=== PATIENT | male | born 1975 | race Caucasian/White ===

== ENCOUNTER → 2024-12-16 | Outpatient (CLI) | payer MEDICAID ==
--- NOTE | 2024-12-16 17:41 | MR ---
EXAMINATION TYPE: MR brain wo con DATE OF EXAM: 12/16/2024 6:26 AM COMPARISON: None. CLINICAL INDICATION: Male, 49 years old with history of G43.909 MIGRAINE, UNSP, NOT INTRAC, Migraines . TECHNIQUE: Multiplanar, multiecho imaging on a 3.0 Priscilla magnet is performed through the brain. Stud y is performed within 24 hours of arrival to the hospital.Multiplanar, multiecho imaging on a 3.0 Sulma la magnet is performed through the brain. IV Contrast: mL (None, if empty) FINDINGS: The craniovertebral junction is normal. The pituitary is normal. Diffusion-weighted imaging is performed. No abnormal hyperintensity is present to suggest an acute i ntracranial infarct or acute ischemic change. There is a punctate hyperintensity within the subcortical white matter left parietal lobe. This may b e artifact from a vascular structure in the subcutaneous tissue. Solitary white matter change which c ould be associated with migraine headaches is felt to be less likely. Ventricles and sulci are appropriate for the patient age. Mucosal thickening is in the bilateral maxillary sinuses and ethmoid air cells. Some mucosal thickeni ng is within the frontal sinuses. Minimal mucosal thickening sphenoid sinus. Mastoid air cells are cl ear. IMPRESSION: 1. No suspicious acute intracranial process. 2. Clinical consideration for pansinusitis [facility], Workstation: [facility], 12/16/2024 5:38 PM
== END | disposition home or self-care (01) ==
LOC: RADMRIMAIN 05:51
PROVIDERS: ATTEND Family Medicine
DX: G43.909 Migraine, unspecified, not intractable, without status migrainosus (principal); J32.4 Chronic pansinusitis
CPT/HCPCS: 70551

== ENCOUNTER 2025-05-23 18:56 | Inpatient (IN) | payer MEDICAID ==
--- NOTE | 2025-05-23 20:10 | ED ---
General Adult HPI - General Chief complaint: Psychiatric Symptoms Stated complaint: Suicidal,body pain Time Seen by Provider: 05/23/25 19:41 Source: patient Mode of arrival: ambulatory Limitations: no limitations - History of Present Illness Initial comments: Dictation was produced using [employer] dictation software. please excuse any grammatical, word or spelling errors. Chief Complaint: 49-year-old male with suicidal ideation History of Present Illness: Patient is a 49-year-old male recently diagnosed with myasthenia gravis. Patient states that he is depressed with how his life is unfolding. States that he feels like ending at all. Patient states that he wants to shave his. Take pills and walk into a pond. Denies any medical complaints. Patient allegedly has history myasthenia gravis that he states he cannot afford to fully manage due to the financial burden. The ROS documented in this emergency department record has been reviewed and confirmed by me. Those systems with pertinent positive or negative responses have been documented in the HPI. All other systems are other negative and/or noncontributory. - Related Data Home Medications Medication Instructions Recorded Confirmed LORazepam [Ativan] 1 mg PO BID PRN 05/23/25 05/23/25 Pyridostigmine [Mestinon] 60 mg PO BID 05/23/25 05/23/25 Allergies Allergy/AdvReac Type Severity Reaction Status Date / Time Penicillins Allergy Anaphylaxis Verified 05/23/25 19:49 Review of Systems ROS Statement: Those systems with pertinent positive or pertinent negative responses have been documented in the HPI. ROS Other: All systems not noted in ROS Statement are negative. Past Medical History Additional Past Medical History / Comment(s): miastavian gravis History of Any Multi-Drug Resistant Organisms: None Reported Past Surgical History: No Surgical Hx Reported Past Psychological History: No Psychological Hx Reported Smoking Status: Vaper Past Alcohol Use History: Occasional Past Drug Use History: None Reported General Exam - General Exam Comments Initial Comments: General: Well-appearing, nontoxic, no acute distress. Head: Normocephalic, atraumatic Eyes: PERRLA, EOMI ENT: Airway patent Chest: Nonlabored breathing Skin: No visual rash, normal skin tone Neuro: Alert and oriented 3 Musculoskeletal: No gross abnormalities Limitations: no limitations Course Vital Signs 05/23/25 19:23 Temperature 98.3 F Pulse Rate 73 Respiratory 18 Rate Blood Pressure 145/89 O2 Sat by Pulse 98 Oximetry Medical Decision Making - Medical Decision Making Was pt. sent in by a medical professional or institution (, PA, SUPPLY TEACHER, urgent care, hospital, or skilled nursing...) When possible be specific @ -No Did you speak to anyone other than the patient for history (EMS, parent, family, police, friend...)? What history was obtained from this source @ -No Did you review nursing and triage notes (agree or disagree)? Why? @ -I reviewed and agree with nursing and triage notes Were old charts reviewed (outside hosp., previous admission, EMS record, old EKG, old radiological studies, urgent care reports/EKG's, skilled nursing records)? Report findings @ -No old charts were reviewed Differential Diagnosis (chest pain, altered mental status, abdominal pain women, abdominal pain men, vaginal bleeding, musculoskeletal, weakness, fever, dyspnea, syncope, headache, dizziness, GI bleed, back pain, seizure, CVA, palpatations, mental health)? @ -Differential Mental Health: Depression, anxiety, bipolar, psychosis, schizophrenia, borderline personality, situational depression, adjustment disorder, behavioral disorder, brain tumor, malingering, substance abuse, encephalopathy, medication reaction, dementia, hypothyroidism, degenerative neurologic disorder, lupus.... This is not meant to be all-inclusive list EKG interpreted by me (3pts min.). @ -None done X-rays interpreted by me (1pt min.). @ -None done CT interpreted by me (1pt min.). @ -None done U/S interpreted by me (1pt. min.). @ -None done What testing was considered but not performed or refused? (CT, X-rays, U/S, labs)? Why? @ -None What meds were considered but not given or refused? Why? @ -None Was smoking cessation discussed for >3mins.? @ -No Were there social determinants of health that impacted care today? How? (Homelessness, low income, unemployed, alcoholism, drug addiction, transportation, low edu. Level, literacy, decrease access to med. care, fpc, rehab)? @ -No Was there de-escalation of care discussed even if they declined (Discuss DNR or withdrawal of care, Hospice)? DNR status @ -No What co-morbidities impacted this encounter? (DM, HTN, Smoking, COPD, CAD, Cancer, CVA, ARF, Chemo, Hep., AIDS, mental health diagnosis, sleep apnea, morbid obesity)? @ -None Was patient admitted / discharged? Hospital course, mention meds given and route, prescriptions, significant lab abnormalities, going to OR and other pertinent info. @ -41-year-old male with suicidal ideation. Vital signs stable. Has history of metastatic gravis that he states is poorly controlled. Physical examination benign. Patient well-appearing at the bedside. Medically cleared for EPS evaluation. Eval by EPS will be admitted to inpatient psych Diagnosis/symptom? @ -Suicidal ideation Acute, or Chronic, or Acute on Chronic? @ -Default Uncomplicated (without systemic symptoms) or Complicated (systemic symptoms)? @ -Default Side effects of treatment? @ -None Exacerbation, Progression, or Severe Exacerbation] @ -No Poses a threat to life or bodily function? @ -yes - Lab Data Lab Results 05/23/25 05/23/25 Range/Units 20:24 20:24 Urine Opiates Screen Not Detected (NotDetected) Ur Oxycodone Screen Not Detected (NotDetected) Urine Methadone Screen Not Detected (NotDetected) Ur Barbiturates Screen Not Detected (NotDetected) U Tricyclic Antidepress Not Detected (NotDetected) Ur Phencyclidine Scrn Not Detected (NotDetected) Ur Amphetamines Screen Not Detected (NotDetected) U Methamphetamines Scrn Not Detected (NotDetected) U Benzodiazepines Scrn Not Detected (NotDetected) Urine Cocaine Screen Not Detected (NotDetected) U Marijuana (THC) Screen Detected H (NotDetected) Influenza Type A (PCR) Not Detected (Not Detectd) Influenza Type B (PCR) Not Detected (Not Detectd) RSV (PCR) Not Detected (Not Detectd) SARS-CoV-2 (PCR) Not Detected (Not Detectd) Disposition Clinical Impression: Suicidal ideation Disposition: TRANSFER TO PSYCH HOSP/UNIT Condition: Fair Referrals: Carter Rodrigez MD [Primary Care Provider] - 1-2 days Time of Disposition: 21:46
[2025-05-23 20:54] LABS: Barbiturate Screen,Urine Not Detected (NotDetected); Benzodiazepines Screen,Urine Not Detected (NotDetected); Opiate Screen,Urine Not Detected (NotDetected); Oxycodone Screen, Urine Not Detected (NotDetected); Phencyclidine Screen,Urine Not Detected (NotDetected); Tricyclic Antidepressant,Urine Not Detected (NotDetected); Urn Cannabinoid Scrn Detected (NotDetected)
[2025-05-23 21:13] LABS: RSV Not Detected (Not Detectd)
[2025-05-23] MEDS ORDERED: HALOPERIDOL LACTATE 5 MG/ML 1 ML VIAL IM PRN (22:25)
[2025-05-23] MEDS ORDERED: LORazepam 1 MG/0.5 ML VIAL IM PRN (22:25)
[2025-05-23] MEDS ORDERED: ACETAMINOPHEN TAB 325 MG TAB PO PRN (22:25)
[2025-05-23] MEDS ORDERED: LORazepam 1 MG TAB PO PRN (22:25)
[2025-05-23] MEDS ORDERED: MAG HYDROX/AL HYDROX/SIMETH 355 ML BOTTLE PO PRN (22:25)
[2025-05-23] MEDS ORDERED: IBUPROFEN 600 MG TAB PO PRN (22:25)
[2025-05-24] MEDS: NICOTINE 14MG/24HR PATCH TRANSDERM SCH (08:15)
[2025-05-24] MEDS: PYRIDOSTIGMINE 60 MG TAB PO SCH (08:15)
[2025-05-24 11:07] LABS: Basophils # (A) 0.04 10*3/uL (0.00-0.10); Basophils % (A) 0.6 %; Eosinophils # (A) 0.22 10*3/uL (0.04-0.35); Eosinophils % (A) 3.3 %; HCT 45.5 % (39.6-50.0); HGB 15.3 g/dL (13.0-17.0); Lymphocytes # (A) 1.42 10*3/uL (0.90-5.00); Lymphocytes % (A) 21.2 %; MCH 32.6 pg (27.0-32.0); MCHC 33.6 g/dL (32.0-37.0); MCV 97.0 fL (80.0-97.0); Monocytes # (A) 0.57 10*3/uL (0.20-1.00); Monocytes % (A) 8.5 %; Neutrophils # (A) 4.44 10*3/uL (1.80-7.70); Neutrophils % (A) 66.1 %; Platelet Count 228 10*3/uL (140-440); RBC 4.69 10*6/uL (4.40-5.60); RDW 12.7 % (11.5-14.5); WBC 6.71 10*3/uL (4.50-10.00)
[2025-05-24 11:13] LABS: ALT 17 U/L (4-49); AST 25 U/L (17-59); African American GFR (CKD) >90 (>60 ml/min/1.73 sqM); Albumin 4.4 g/dL (3.5-5.0); Alkaline Phosphatase 43 U/L (38-126); Anion Gap 12 mmol/L; Blood Urea Nitrogen 12 mg/dL (9-20); Calcium 9.6 mg/dL (8.4-10.2); Carbon Dioxide 24 mmol/L (22-30); Chloride 103 mmol/L (98-107); Glucose 81 mg/dL (74-99); Non-African American GFR(CKD) >90 (>60 ml/min/1.73 sqM); Potassium 4.5 mmol/L (3.5-5.1); Sodium 139 mmol/L (137-145); Total Protein 7.5 g/dL (6.3-8.2)
--- NOTE | 2025-05-24 12:53 | P.HP ---
Psychiatric H&P - . H&P Date: 05/24/25 History & Physical: Allergies Allergy/AdvReac Type Severity Reaction Status Date / Time banana Allergy Anaphylaxis Verified 05/23/25 22:29 Penicillins Allergy Anaphylaxis Verified 05/23/25 19:49 Vital Signs Temp 97.2 F L 05/24/25 09:00 Pulse 87 05/24/25 09:00 Resp 18 05/24/25 09:00 BP 121/85 05/24/25 09:00 Pulse Ox 94 L 05/24/25 09:00 FiO2 Intake & Output 05/23/25 05/24/25 05/24/25 18:59 06:59 18:59 Weight 132.8 kg Laboratory Last Values WBC 6.71 10*3/uL (4.50-10.00) 05/24/25 09:53 RBC 4.69 10*6/uL (4.40-5.60) 05/24/25 09:53 Hgb 15.3 g/dL (13.0-17.0) 05/24/25 09:53 Hct 45.5 % (39.6-50.0) 05/24/25 09:53 MCV 97.0 fL (80.0-97.0) 05/24/25 09:53 MCH 32.6 pg (27.0-32.0) H 05/24/25 09:53 MCHC 33.6 g/dL (32.0-37.0) 05/24/25 09:53 Plt Count 228 10*3/uL (140-440) 05/24/25 09:53 MPV 10.9 fL (9.5-12.2) 05/24/25 09:53 Immature Gran % (Auto) 0.3 % 05/24/25 09:53 Neutrophils % 66.1 % 05/24/25 09:53 Lymphocytes % 21.2 % 05/24/25 09:53 Monocytes % 8.5 % 05/24/25 09:53 Eosinophils % 3.3 % 05/24/25 09:53 Basophils % 0.6 % 05/24/25 09:53 Immature Gran # 0.02 10*3/uL (0.00-0.04) 05/24/25 09:53 Neutrophils # 4.44 10*3/uL (1.80-7.70) 05/24/25 09:53 Lymphocytes # 1.42 10*3/uL (0.90-5.00) 05/24/25 09:53 Monocytes # 0.57 10*3/uL (0.20-1.00) 05/24/25 09:53 Eosinophils # 0.22 10*3/uL (0.04-0.35) 05/24/25 09:53 Basophils # 0.04 10*3/uL (0.00-0.10) 05/24/25 09:53 Sodium 139 mmol/L (137-145) 05/24/25 09:53 Potassium 4.5 mmol/L (3.5-5.1) 05/24/25 09:53 Chloride 103 mmol/L (98-107) 05/24/25 09:53 Carbon Dioxide 24 mmol/L (22-30) 05/24/25 09:53 Anion Gap 12 mmol/L 05/24/25 09:53 BUN 12 mg/dL (9-20) 05/24/25 09:53 Creatinine 0.96 mg/dL (0.66-1.25) 05/24/25 09:53 Est GFR (CKD-EPI)AfAm >90 (>60 ml/min/1.73 sqM) 05/24/25 09:53 Est GFR (CKD-EPI)NonAf >90 (>60 ml/min/1.73 sqM) 05/24/25 09:53 Glucose 81 mg/dL (74-99) 05/24/25 09:53 Calcium 9.6 mg/dL (8.4-10.2) 05/24/25 09:53 Total Bilirubin 0.7 mg/dL (0.2-1.3) 05/24/25 09:53 AST 25 U/L (17-59) 05/24/25 09:53 ALT 17 U/L (4-49) 05/24/25 09:53 Alkaline Phosphatase 43 U/L (38-126) 05/24/25 09:53 Total Protein 7.5 g/dL (6.3-8.2) 05/24/25 09:53 Albumin 4.4 g/dL (3.5-5.0) 05/24/25 09:53 TSH 3.040 mIU/L (0.465-4.680) 05/24/25 09:53 Urine Opiates Screen Not Detected (NotDetected) 05/23/25 20:24 Ur Oxycodone Screen Not Detected (NotDetected) 05/23/25 20:24 Urine Methadone Screen Not Detected (NotDetected) 05/23/25 20:24 Ur Barbiturates Screen Not Detected (NotDetected) 05/23/25 20:24 U Tricyclic Antidepress Not Detected (NotDetected) 05/23/25 20:24 Ur Phencyclidine Scrn Not Detected (NotDetected) 05/23/25 20:24 Ur Amphetamines Screen Not Detected (NotDetected) 05/23/25 20:24 U Methamphetamines Scrn Not Detected (NotDetected) 05/23/25 20:24 U Benzodiazepines Scrn Not Detected (NotDetected) 05/23/25 20:24 Urine Cocaine Screen Not Detected (NotDetected) 05/23/25 20:24 U Marijuana (THC) Screen Detected (NotDetected) H 05/23/25 20:24 Influenza Type A (PCR) Not Detected (Not Detectd) 05/23/25 20:24 Influenza Type B (PCR) Not Detected (Not Detectd) 05/23/25 20:24 RSV (PCR) Not Detected (Not Detectd) 05/23/25 20:24 SARS-CoV-2 (PCR) Not Detected (Not Detectd) 05/23/25 20:24 05/24/25 12:45 IDENTIFYING DATA: Patient is a 49-year-old male, employed and homeless CHIEF COMPLAINT: SI with a plan HPI: Patient presented to the hospital with depression, suicidal ideations. Per EPS, "Patient was escorted to ER by police but was not petitioned. Pt states he had called his primary care dr office stating he was fighting with himself to live. Pt states he was recently diagnosed with Myasthenia gravis in Sep 2024. Since then pt has had an increase in life stressors, recently pt and filiana broke up, pt lost job, lost car d/t inability to pay for it and is staying across the street from the ex- fiance's house with the ex-fiance's friend house who have small children. Pt reports struggling with depression for years but has not been inpatient psych previously or ever established outpatient MH treatment. [place] Patient reports past history of suicide attempts: cutting his wrist approx 20 yrs ago, walking into pond in below freezing weather sometime after Sep 2024 d/t diagnosis. Pt states he feels himself getting physicially weaker d/t the MG diagnosis but has no will to live "I just keep bottling everything up, it would be easier to be , I have nothing to live for". Pt rates depression "10/10" and admits to not being able to keep self safe. During assessment pt appears to have flat affect, guarded and vague initially but at end of assessment pt was tearful and forthcoming. Pt denies HI, admits to always seeing shadows and hearing people call his name when noone is around. Pt reports poor sleep, "I lay there and my mind keeps racing, I can't shut it off", poor appetite and poor hygiene". Patient seen and evaluated on the unit and was agreeable with speaking to advertising copywriter in office. He states things have been on a downward spiral ever since being diagnosed with myasthenia gravis in September. He states losing both his fiance and his job due to his health and expressed no desire to live. Patient reports history of unstable relationships and employment. Patient denies homicidal ideations intent or plan, but does report current suicidal ideation at this time. He reports his plan prior to going to the ED was to OD on my Lorazepam which he was prescribed to take prior to an MRI recently. Patient contracts to safety on the unit. At this time patient denies any auditory or visual hallucinations, but reports a history of seeing shadows and hearing people call my name. Patient denies any flight of ideas racing thoughts and increased in goal directed behavior. Patient reports multiple physical complaints due to his medical condition such as diplopia, weakness, and a chronic cough. Pt currently rates his depression 10/10, anxiety 8/10 due to racing thoughts. Patient has experienced low mood, poor sleep, anhedonia, feelings of worthlessness, poor energy, poor concentration, poor appetite, recent weight loss, and psychomotor slowing for many months. Patient reports feeling increased anxiety when in social situations and feeling like people are always looking at me and judging me. Patient denies symptoms of haroon. Patient admits to using marijuana daily. He reports consuming 1 pint of alcohol and 2-3 hard seltzers 2-3 times per week. Patient denies any other substance use. Patient voices concerns over current living situation as he states, its a terrible household. I cant go back there. PAST PSYCHIATRIC HISTORY: Patient has a history of depression. Patient denies being on any psychiatric medications. He has tried Prozac before in the past. Patient denies any previous psychiatric hospitalizations. Patient denies any psychiatric outpatient follow-up. Patient reports 2 previous suicide attempts, most recent being [place] 2022 [place] PMH: as per ER note ALLERGIES: as per EMR SUBSTANCE USE HISTORY: As per HPI FAMILY PSYCHIATRIC/SUBSTANCE USE HISTORY: Patient reports mental health concerns with his sister and possibly father however no actual diagnosis. He does report losing a niece and nephew to suicide SOCIAL HISTORY: [place]. 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 He reports having 2 grown children, receiving a GED, and denies any legal trouble. MENTAL STATUS EXAM: General Appearance: Patient appears to be stated age is alert, directable, and attempts to cooperate. Patient appears to have poor hygiene and grooming. He has a long goatee Behavior: Patient is seated without any agitated behavior. Speech: Patient's speech is fluent and nonpressured. Mood/Affect: Patient reports their mood is depressed, affect is congruent and constricted. Suicidality/Homicidality: Patient denies having any homicidal ideation intent or plan. He reports suicidal ideation with a plan Perceptions: Patient denies any visual hallucinations and denies any auditory hallucinations Though content/process: There is no evidence of any delusional thought content and thought process is linear and logical. Memory and concentration: AOX3, grossly intact for the purposes of this session. Can spell "WORLD" backwards Judgment and insight: Poor STRENGTHS/WEAKNESSES: strength is that patient is resilient. Weakness is that patient has poor judgment, recent diagnosis of MG and is impulsive INTELLECT: Average IMPRESSIONS: Major depressive disorder, recurrent, moderate Social anxiety disorder Cannabis use disorder Rule out alcohol use disorder PLAN: -Patient is admitted under voluntary status to MHU for stabilization of psychiatric symptoms and safety. Patient has signed adult voluntary form and and is placed in patient's chart. -Medications : Start Zoloft 50 mg daily for depression/anxiety, trazodone 50 mg at bedtime for insomnia - Ativan and Haldol PRN for agitation/aggression -Patient was counselled on substance abuse and desired to cut back on use-Will offer patient subtance use rehab -Patient was informed of the risks, benefits and side effects of the medication and patient verbally consented to taking the medications. Patient signed med consent form and was placed in chart. Patient offered and accepted patient education sheet for psychotropic medications. -Internal Medicine consult to perform medical evaluation and physical. -NRT -not needed as patient does not smoke -SW on board for discharge planning. Encourage patient to participate in groups to work on coping skills.
[2025-05-24] MEDS: SERTRALINE 50 MG TAB PO SCH (13:29)
[2025-05-24 13:59] LABS: Bilirubin,Urine Negative (Negative); Blood,Urine Negative (Negative); Color,Urine Light Yellow; Glucose,Urine (UA) Negative (Negative); Ketones,Urine Negative (Negative); Leukocyte Esterase,Urine Negative (Negative); Nitrite,Urine Negative (Negative); PH, Urine 6.0 (5.0-8.0); Protein,Urine Negative (Negative); Specific Gravity,Urine 1.012 (1.001-1.035); Urobilinogen,Urine <2.0 mg/dL (<2.0)
[2025-05-24 15:16] LABS: Cholesterol 151.00 mg/dL (0.00-200.00); HDL Cholesterol 67.70 mg/dL (40.00-60.00); LDL Cholesterol,Calculated 73.3 mg/dL (0.0-131.0); Triglycerides 50.00 mg/dL (0.00-149.00); VLDL Calculation 10.00 mg/dL (5.00-40.00)
[2025-05-25] MEDS: SERTRALINE 50 MG TAB PO STA (11:03)
--- NOTE | 2025-05-25 11:42 | P.PN ---
Progress Note - Text Progress Note Date: 05/25/25 Interval History: Patient was seen in group and was directable and agreeable to speak with copywriter in the office. He expresses having a poor night due to racing thoughts and difficulty sleeping. He states the environment was also a trigger for his poor sleep due to the frequent checks and the light entering in his room distracting him during these checks. He states not wanting to take Ativan when offered to him. Patient displays predominant personality symptoms, expressing his frustrations with several things including not getting orange juice [id number], not getting his peanut butter crackers, not speaking to a therapist one-on-one, and not working with a account planner for his housing/income difficulties. These issues were discussed in detail with patient and he was informed that housing will take time and will likely not be in place upon discharge to which patient expresses his desire to kill himself if he has to live out of boxes again and if nothing is set up for him upon discharge. He states having increase in phlegm overnight, respiratory panel was negative. He reports questionable visual hallucinations described as seeing shadows or figures in his periphery yesterday. At this time patient denies any homicidal ideations, intent or plan. Patient denies any auditory hallucinations and denies any paranoia or delusions. Patient denies any side effects from the medications and has been compliant with meds. Mental Status Exam: General Appearance: Patient appears to be stated age is alert, directable, and cooperative. He has a long christianson with fair grooming and hygiene Behavior: Patient is calmly seated without any agitated behavior. He is irritable Speech: Patient's speech is fluent and nonpressured. Mood/Affect: Mood is upset, affect is congruent and constricted. Suicidality/Homicidality: Patient denies having any homicidal ideation intent or plan. Patient reports suicidal ideations with the intent if discharged from the hospital with no housing set up Perceptions: Patient denies any visual hallucinations and denies any auditory hallucinations Though content/process: There is no evidence of any delusional thought content and thought process is linear. Memory and concentration: AOX3, grossly intact for the purposes of this session Judgment and insight: Improving mildly Assessment Major depressive disorder, recurrent, moderate Social anxiety disorder Cluster B personality disorder Cannabis use disorder Rule out alcohol use disorder Plan: -Patient continues to meet criteria for inpatient psychiatric admission for symptom stabilization and safety. Patient has signed adult voluntary form and medication consent and was placed in patient's chart. -Medications: Increase Zoloft to 100 mg daily for depression/anxiety, increase trazodone to 150 mg at bedtime for insomnia, start melatonin 10 mg as at bedtime for insomnia -When necessary Ativan and Haldol for agitation/aggression. -Labs: Respiratory panel, white count all WNL -SW on board for discharge planning. Encouraged the patient to participate in milieu.
[2025-05-25] MEDS: MELATONIN 5 MG TABLET PO SCH (22:32)
[2025-05-26] MEDS: SERTRALINE 100 MG TAB PO SCH (08:09)
[2025-05-26] MEDS: BENZOCAINE/MENTHOL LOZENG 1 EACH LOZENGE MUCOUS MEM PRN (09:59)
--- NOTE | 2025-05-26 10:58 | P.PN ---
Progress Note - Text Progress Note Date: 05/26/25 Interval History: [facility] and was direct[facility] and agreeable to speak with comic writer in the office. He reports having broken sleep however did sleep continuously for 3 hours overnight. He reports some delusional thoughts, feeling as though the hospital is possessed as evidenced by him seeing his bathroom door open by itself at nighttime and seeing figures and shadows in the doorway at times. Patient is adamant that this is legit as this has been occurring since he has been here. He states speaking to his ex yesterday who triggered him when she told him that his friend would not allow him likely to return to the house due to issues with paying the rent and picking up after himself to which he denied ever being concerns. He questions whether to continue to communicate with her while here however he was able to establish boundaries with her and she apologized for triggering him yesterday. He continues to express racing thoughts. He reports having loose stools yesterday however did not have any thus far today. At this time patient denies any suicidal or homicidal ideations, intent or plan. Patient denies any auditory, visual hallucinations and denies any paranoia. Patient denies any side effects from the medications and has been compliant with meds. Mental Status Exam: General Appearance: Patient appears to be stated age is alert, directable, and cooperative. He has a long christianson with fair grooming and hygiene Behavior: Patient is calmly seated without any agitated behavior. Speech: Patient's speech is fluent and nonpressured. Mood/Affect: Mood is improving mildly, affect is congruent and constricted. Suicidality/Homicidality: Patient denies having any suicidal or homicidal ideation intent or plan. Perceptions: Patient denies any visual hallucinations and denies any auditory hallucinations Though content/process: There is evidence of delusional thoughts, thought process otherwise is linear Memory and concentration: AOX3, grossly intact for the purposes of this session Judgment and insight: Improving mildly Assessment Major depressive disorder, recurrent, moderate Social anxiety disorder Cluster B personality disorder Cannabis use disorder Rule out alcohol use disorder Plan: -Patient continues to meet criteria for inpatient psychiatric admission for symptom stabilization and safety. Patient has signed adult voluntary form and medication consent and was placed in patient's chart. -Medications: Start Seroquel 50 mg at bedtime for psychosis/mood stabilization, continue Zoloft 100 mg daily for depression/anxiety, trazodone 150 mg at bedtime for insomnia, melatonin 10 mg at bedtime for insomnia -When necessary Ativan and Haldol for agitation/aggression. -Labs: Reviewed -SW on board for discharge planning. Encouraged the patient to participate in milieu.
--- NOTE | 2025-05-26 17:06 | P.MDCNMH ---
History of Present Illness H&P Date: 05/26/25 Chief Complaint: Medical management 49-year-old male with medical history of hypertension, myasthenia gravis presented for mental health evaluation. Medicine was consulted for medical management. From medical perspective, his myasthenia gravis is well-controlled, is taking his Mestinon twice a day as scheduled. He has no complaints at this time. Patient is hemodynamically stable. CBC, BMP, liver function test, lipid panel, urinalysis, urine tox screen is reviewed with only pertinent finding being positive for marijuana. Influenza A, B, RSV, COVID are reviewed and negative. All Systems reviewed and pertinent positives and negatives noted in HPI, all other symptoms are negative Gen: In NAD, non-toxic HEENT: normocephalic, atraumatic, hearing acuity is intant, mucous membranes moist CVS: perfusing all extremities well, no pitting edema, Respiratory: symmetric chest expansion, no accessory muscle use, GI: soft, NTTP, ND, : no suprapubic tenderness, no CVA tenderness MSK/Derm: no rashes, cyanosis Neuro: CN II-XII intact, no motor weakness, Psych: cooperative, euthymic mood, judgment and insight is intact Labs and imaging as above Assessment/plan: Myasthenia gravis -Continue pyridostigmine Hypertension - Continue to monitor Thank you for this consult, please reach out with any questions or concerns Past Medical History Past Medical History: Chest Pain / Angina, Musculoskeletal Disorder Additional Past Medical History / Comment(s): Myasthenia gravis, history of chest pain, chronic pain and often SOB d/t Myasthenia gravis, Hx bronchitis History of Any Multi-Drug Resistant Organisms: None Reported Past Surgical History: No Surgical Hx Reported Past Anesthesia/Blood Transfusion Reactions: No Reported Reaction Smoking Status: Former smoker, Vaper - Past Family History Mother Family Medical History: Musculoskeletal Disorder Additional Family Medical History / Comment(s): multiple sclerosis Medications and Allergies Home Medications Medication Instructions Recorded Confirmed Type LORazepam [Ativan] 1 mg PO BID PRN 05/23/25 05/23/25 History Pyridostigmine [Mestinon] 60 mg PO BID 05/23/25 05/23/25 History Allergies Allergy/AdvReac Type Severity Reaction Status Date / Time banana Allergy Anaphylaxis Verified 05/23/25 22:29 Penicillins Allergy Anaphylaxis Verified 05/23/25 19:49 Physical Exam Osteopathic Statement: *. No significant issues noted on an osteopathic structural exam other than those noted in the History and Physical/Consult. Vitals: Vital Signs Temp Pulse Resp BP Pulse Ox 05/26/25 08:12 98.0 F 88 16 115/84 95 05/25/25 21:00 97.4 F L 80 18 130/91 98 Cranial Nerve Examination - Cranial Nerves Cranial Nerve II- Optic: Intact Cranial Nerve III- Oculomotor: Intact Cranial Nerve IV- Trochlear: Intact Cranial Nerve V- Trigeminal: Intact Cranial Nerve - Abducens: Intact Cranial Nerve VII- Facial: Intact Cranial Nerve VIII- Auditory: Intact Cranial Nerve IX- Glossopharyngeal: Intact Cranial Nerve X- Vagus: Intact Cranial Nerve XI- Accessory: Intact Cranial Nerve XII- Hypoglossal: Intact Results CBC & Chem 7: 05/24/25 09:53 05/24/25 09:53
[2025-05-26] MEDS: QUEtiapine 50 MG TAB PO SCH (20:57)
--- NOTE | 2025-05-27 15:59 | P.PN ---
Subjective Progress Note Date: 05/27/25 Patient was seen in the [facility] and was directable and agreeable to speak with documentation writer in the office. He reports having broken sleep however did sleep continuously for 3 hours overnight. He continues to express racing thoughts. He reports having loose stools yesterday two days ago but is currently cons tipated. At this time patient denies any suicidal or homicidal ideations, intent or plan. Patient denies any auditory, visual hallucinations and denies any paranoia. Patient denies any side effects from the medications and has been compliant with meds. He does say that he has no hope or options. He tried to get dissabilty for his MG but had no phone or ability to go to an appointment. He says that his weakness is toatally unpredictable and he can suddenly fall while climbing steps. He says that his former boss said, "good luck in whatever you do next." Mental Status Exam: General Appearance: Patient appears to be stated age is alert, directable, and cooperative. He has a long christianson with fair grooming and hygiene Behavior: Patient is calmly seated without any agitated behavior. Speech: Patient's speech is fluent and nonpressured. Mood/Affect: Mood is improving mildly, affect is congruent and constricted. Suicidality/Homicidality: Patient denies having any suicidal or homicidal inocente ation intent or plan. Perceptions: Patient denies any visual hallucinations and denies any auditory hallucinations Though content/process: There is evidence of delusional thoughts, thought process otherwise is linear Memory and concentration: AOX3, grossly intact for the purposes of this session Judgment and insight: Improving mildly Assessment Major depressive disorder, recurrent, moderate Social anxiety disorder Cluster B personality disorder Cannabis use disorder Rule out alcohol use disorder Plan: -Patient continues to meet criteria for inpatient psychiatric admission for symptom stabilization and safety. Patient has signed adult voluntary form and medication consent and was placed in patient's chart. -Medications:Increase Seroquel to 200 mg at bedtime for psychosis/mood stabilization and sleep, continue Zoloft 100 mg daily for depression/anxiety, trazodone 150 mg at bedtime for insomnia, melatonin 10 mg at bedtime for insomnia -When necessary Ativan and Haldol for agitation/aggression. -Labs: Reviewed -SW on board for discharge planning. Encouraged the patient to participate in milieu. Objective - Vital Signs Vital signs: Vital Signs Temp 97.8 F 05/27/25 07:56 Pulse 117 H 05/27/25 07:56 Resp 18 05/26/25 21:00 BP 105/76 05/27/25 07:56 Pulse Ox 97 05/27/25 07:56 FiO2 - Labs CBC & Chem 7: 05/24/25 09:53 05/24/25 09:53
--- NOTE | 2025-05-28 09:21 | P.PN ---
Subjective Progress Note Date: 05/28/25 Principal diagnosis: Major Depression recurrent severe with psychotic symptoms. Rule out Schizoaffective disorder [facility] with life insurance underwriter in the office. He reports still having broken sleep however did sleep a little better. He continues to express racing thoughts. He reports having loose stools yesterday two days ago but is currently constipated. The voices are telling him not to try to get rid of them or they will be upset. They are constantly critical and negative about everyone he sees. He has discussions with them and points out that the other people are really nice people. At this time patient denies any suicidal or homicidal ideations, intent or plan. Patient denies any side effects from the medications and has been compliant with meds. He does say that he has no hope or options. He tried to get dissabilty for his MG but had no phone or ability to go to an appointment. He says that his weakness is toatally unpredictable and he can suddenly fall while climbing steps. He says that his former boss said, "good luck in whatever you do next." Mental Status Exam: General Appearance: Patient appears to be stated age is alert, directable, and cooperative. He has a long christianson with fair grooming and hygiene Behavior: Patient is calmly seated without any agitated behavior. Speech: Patient's speech is fluent and nonpressured. Mood/Affect: Mood is improving mildly, affect is congruent and constricted. Suicidality/Homicidality: Patient denies having any suicidal or homicidal ideation intent or plan. Perceptions: Patient denies any visual hallucinations and denies any auditory hallucinations Though content/process: There is evidence of delusional thoughts, thought process otherwise is linear Memory and concentration: AOX3, grossly intact for the purposes of this session Judgment and insight: Improving mildly Assessment He is being more open about his psychotic symptoms Major depressive disorder, recurrent, moderate with psychosis Social anxiety disorder Cluster B personality disorder Cannabis use disorder Rule out alcohol use disorder Plan: -Patient continues to meet criteria for inpatient psychiatric admission for symptom stabilization and safety. Patient has signed adult voluntary form and medication consent and was placed in patient's chart. -Medications:Increase Seroquel to 400 mg at bedtime for psychosis/mood stabilization and sleep, continue Zoloft 100 mg daily for depression/anxiety, trazodone 150 mg at bedtime for insomnia, melatonin 10 mg at bedtime for insomnia -When necessary Ativan and Haldol for agitation/aggression. -Labs: Reviewed -SW on board for discharge planning. Encouraged the patient to participate in milieu. Objective - Vital Signs Vital signs: Vital Signs Temp 97.6 F 05/27/25 21:00 Pulse 74 05/27/25 21:00 Resp 18 05/27/25 21:00 BP 138/84 05/27/25 21:00 Pulse Ox 97 05/27/25 21:00 FiO2 - Labs CBC & Chem 7: 05/24/25 09:53 05/24/25 09:53
[2025-05-28] MEDS: MAGNESIUM HYDROXIDE 2,400 MG/30 ML CUP PO PRN (20:46)
[2025-05-28] MEDS: QUEtiapine 400 MG TAB PO SCH (21:52)
--- NOTE | 2025-05-29 13:43 | P.PN ---
Progress Note - Text Progress Note Date: 05/29/25 Interval History: Patient was seen laying in bed, not cooperative with clinical writer and asking clinical writer to return later. He did admit to poor sleep overnight and over the weekend, broken due to racing thoughts. Mental Status Exam: General Appearance: Patient appears to be stated age is somnolent and uncooperative Behavior: Patient is calmly laying without any agitated behavior. Speech: Patient's speech is brief but nonpressured. Mood/Affect: Mood is "tired", affect is congruent and constricted. Suicidality/Homicidality: Patient denies having any suicidal or homicidal ideation intent or plan. Perceptions: Patient denies any visual hallucinations and denies any auditory hallucinations Though content/process: There is no evidence of any delusional thought content and thought process is linear and goal-directed. Memory and concentration: AOX3, grossly intact for the purposes of this session Judgment and insight: Improving mildly Assessment Major depressive disorder, recurrent, moderate Social anxiety disorder Cluster B personality disorder Cannabis use disorder Rule out alcohol use disorder Plan: -Patient continues to meet criteria for inpatient psychiatric admission for symptom stabilization and safety. Patient has signed adult voluntary form and medication consent and was placed in patient's chart. -Medications: Continue Seroquel 400 mg at bedtime for mood stabilization/sleep, Zoloft 100 mg daily for depression/anxiety, trazodone 150 mg at bedtime for insomnia, melatonin 10 mg at bedtime for insomnia -When necessary Ativan and Haldol for agitation/aggression. -Labs: Reviewed -SW on board for discharge planning. Encouraged the patient to participate in milieu. Anticipate discharge within the next 2-3 days, likely to detention as patient is homeless
--- NOTE | 2025-05-30 11:31 | P.PN ---
Progress Note - Text Progress Note Date: 05/30/25 Interval History: Patient was seen in the [facility] and was directable and agreeable to speak with automobile service writer in the [facility] privately. He reports being constipated for the past 5 days with no help with MiraLAX. He denied any abdominal pain but did report bloating and is passing flatus. He continues to express inconsistent sleep overnight, difficulties falling and staying asleep. He claims to have had a sleep study 2 years ago that was negative. CBT-I was discussed with the patient as a potential therapeutic intervention given his ongoing sleep difficulties with sleep medications on board. Patient today expressed suicidal ideations and this was discussed as patient previously was denying these concerns. Unclear if homelessness is contributing to these symptoms and this was discussed today with patient including discharge planning. At this time patient denies any homicidal ideations, intent or plan. Patient denies any auditory, visual hallucinations and denies any paranoia or delusions. Patient denies any side effects from the medications and has been compliant with meds. Mental Status Exam: General Appearance: Patient appears to be stated age is alert, directable, and cooperative. Behavior: Patient is calmly seated without any agitated behavior. Speech: Patient's speech is fluent and nonpressured. Mood/Affect: Mood is improving mildly, affect is congruent and reactive at times. Suicidality/Homicidality: Patient denies having any homicidal ideation intent or plan. Patient reports suicidal ideations Perceptions: Patient denies any visual hallucinations and denies any auditory hallucinations Though content/process: There is no evidence of any delusional thought content and thought process is linear and goal-directed. Memory and concentration: AOX3, grossly intact for the purposes of this session Judgment and insight: Improving mildly Assessment Major depressive disorder, recurrent, moderate Social anxiety disorder Cluster B personality disorder Cannabis use disorder Rule out alcohol use disorder Plan: -Patient continues to meet criteria for inpatient psychiatric admission for symptom stabilization and safety. Patient has signed adult voluntary form and medication consent and was placed in patient's chart. -Medications: Start Remeron 7.5 mg at bedtime for sleep/mood/anxiety, continue Seroquel 400 mg at bedtime for mood stabilization/sleep, Zoloft 100 mg daily for depression/anxiety, trazodone 150 mg at bedtime for insomnia, melatonin 10 mg at bedtime for insomnia -When necessary Ativan and Haldol for agitation/aggression. -Labs: Reviewed -SW on board for discharge planning. Encouraged the patient to participate in milieu. Anticipate discharge to [facility] on
[2025-05-30] MEDS: MIRTAZAPINE 15 MG TAB PO SCH (22:00)
--- NOTE | 2025-05-31 11:48 | P.PN ---
Progress Note - Text Progress Note Date: 05/31/25 Interval History: Patient was seen in the [facility] and was directable and agreeable to speak with web content writer in the [facility] privately. He states still not having a bowel movement despite taking MiraLAX yesterday however he was encouraged to take another one today along with milk of mag. He reports significant improvements in terms of sleep, only waking up twice overnight. He states he has not spoken to ex and that he does not wish to speak to her as she will likely bring negativity and due to him being evicted from his friend's house. He was provided a list of shelters in the area and he was encouraged to contact them today. He expresses suicidal ideations due to him not having housing set up however he was reminded that this is not done on the inpatient unit and that he must work with his auto radiator mechanic upon discharge to assist with housing. At this time patient denies any homicidal ideations, intent or plan. Patient denies any auditory, visual hallucinations and denies any paranoia or delusions. Patient denies any side effects from the medications and has been compliant with meds. Mental Status Exam: General Appearance: Patient appears to be stated age is alert, directable, and cooperative. He has fair grooming and hygiene, tall Behavior: Patient is calmly seated without any agitated behavior. Speech: Patient's speech is fluent and nonpressured. Mood/Affect: Mood is improving mildly, affect is congruent and reactive. Suicidality/Homicidality: Patient denies having any homicidal ideation intent or plan. Patient reports suicidal ideations Perceptions: Patient denies any visual hallucinations and denies any auditory hallucinations Though content/process: There is no evidence of any delusional thought content and thought process is linear and goal-directed. Memory and concentration: AOX3, grossly intact for the purposes of this session Judgment and insight: Improving mildly Assessment Major depressive disorder, recurrent, moderate Social anxiety disorder Cluster B personality disorder Cannabis use disorder Rule out alcohol use disorder Plan: -Patient continues to meet criteria for inpatient psychiatric admission for symptom stabilization and safety. Patient has signed adult voluntary form and medication consent and was placed in patient's chart. -Medications: Continue Remeron 7.5 mg at bedtime for sleep/mood/anxiety, Seroquel 400 mg at bedtime for mood stabilization/sleep, Zoloft 100 mg daily for depression/anxiety, trazodone 150 mg at bedtime for insomnia, melatonin 10 mg at bedtime for insomnia -When necessary Ativan and Haldol for agitation/aggression. -Labs: Reviewed -SW on board for discharge planning. Encouraged the patient to participate in milieu. Anticipate discharge to nursing home tomorrow
[2025-06-01 09:40] VITALS: BP 108/78; PULSE 100; RESP 18; TEMP 97.3
[2025-06-01 11:01] VITALS: BMI 33.3
--- NOTE | 2025-06-01 11:54 | P.DS ---
Providers Date of admission: 05/23/25 22:12 Expected date of discharge: 06/01/25 Attending physician: Kiersten Acosta MD Consults: 05/23/25 22:25 Consult Physician Routine Consulting Provider: Nick Shirley Consult Reason/Comments: H & P Do you want consulting provider notified?: Yes Primary care physician: Carter Rodrigez - Discharge Diagnosis(es) (1) Major depressive disorder, recurrent, moderate Current Visit: Yes Status: Acute Priority: High (2) Social anxiety disorder Current Visit: Yes Status: Acute Priority: Medium (3) Cluster B personality disorder Current Visit: Yes Status: Chronic Priority: High (4) Cannabis use disorder Current Visit: Yes Status: Acute Priority: Low Hospital Course: Admission HPI: Admission note was completed by automatic typewriter inspector "Patient presented to the hospital with depression, suicidal ideations. Per EPS, "Patient was escorted to ER by police but was not petitioned. Pt states he had called his primary care dr office stating he was fighting with himself to live. Pt states he was recently diagnosed with Myasthenia gravis in Sep 2024. Since then pt has had an increase in life stressors, recently pt and fiance broke up, pt lost job, lost car d/t inability to pay for it and is staying across the street from the ex- fiance's house with the ex-fiance's friend house who have small children. Pt reports struggling with depression for years but has not been inpatient psych previously or ever established outpatient MH treatment. Pt reports moving to [place] from [place] in 2020. Patient reports past history of suicide attempts: cutting his wrist approx 20 yrs ago, walking into pond in below freezing weather sometime after Sep 2024 d/t diagnosis. Pt states he feels himself getting physicially weaker d/t the MG diagnosis but has no will to live "I just keep bottling everything up, it would be easier to be , I have nothing to live for". Pt rates depression "10/10" and admits to not being able to keep self safe. During assessment pt appears to have flat affect, guarded and vague initially but at end of assessment pt was tearful and forthcoming. Pt denies HI, admits to always seeing shadows and hearing people call his name when noone is around. Pt reports poor sleep, "I lay there and my mind keeps racing, I can't shut it off", poor appetite and poor hygiene". Patient seen and evaluated on the unit and was agreeable with speaking to automatic typewriter inspector in office. He states things have been on a downward spiral ever since being diagnosed with myasthenia gravis in September. He states losing both his fiance and his job due to his health and expressed no desire to live. Patient reports history of unstable relationships and employment. Patient denies homicidal ideations intent or plan, but does report current suicidal ideation at this time. He reports his plan prior to going to the ED was to OD on my Lorazepam which he was prescribed to take prior to an MRI recently. Patient contracts to safety on the unit. At this time patient de nies any auditory or visual hallucinations, but reports a history of seeing shadows and hearing people call my name. Patient denies any flight of ideas racing thoughts and increased in goal directed behavior. Patient reports multiple physical complaints due to his medical condition such as diplopia, weakness, and a chronic cough. Pt currently rates his depression 10/10, anxiety 8/10 due to racing thoughts. Patient has experienced low mood, poor sleep, anhedonia, feelings of worthlessness, poor energy, poor concentration, poor appetite, recent weight loss, and psychomotor slowing for many months. Patient reports feeling increased anxiety when in social situations and feeling like people are always looking at me and judging me. Patient denies symptoms of haroon. Patient admits to using marijuana daily. He reports consuming 1 pint of alcohol and 2-3 hard seltzers 2-3 times per week. Patient denies any other substance use. Patient voices concerns over current living situation as he st ates, its a terrible household. I cant go back there. " Hospital course: Upon admission to the unit patient was directable and agreeable to commence treatment and signed adult voluntary form. Patient got along well with other patients on the unit and followed unit protocol. Patient was compliant with the medications and denied any side effects throughout hospital course. Patient was started on Zoloft and this was increased to 100 mg daily for depression/anxiety, Remeron 7.5 mg at bedtime for sleep/mood, Seroquel increased to 400 mg at bedtime for mood stabilization/sleep, trazodone increased to 150 mg at bedtime for insomnia, melatonin 10 mg at bedtime for insomnia. Patient spoke of his stressors and engaged in therapy both group and individual. Patient was also seen by medical team for history and physical exam. Throughout the course of the hospitalization patient gradually improved with regards to mood, anxiety, sleep and returned back to their baseline level of functioning. On the day of discharge patient denied any homicidal ideations intent or plan denied any auditory or visual hallucinations. He did report questionable suicidal ideations due to his living situation as he is homeless however patient has presented appropriate on the unit, social with peers, reactive and made several jokes to automatic typewriter inspector on the day of discharge, thus appearing mood incongruent. The patient denied any access to guns or weapons. Patient denied any paranoia and did not endorse any delusions. Patient does not have a significant history of substance abuse and was counseled on abstaining from all substances including alcohol and marijuana. Patient was also counseled on the medications and need for regular compliance and was encouraged to follow-up with their outpatient appointment for mental health and also for primary care. Patient to be discharged to correction and will follow-up with [facility]. Mental status exam: General Appearance: Patient appears to be stated age is alert, pleasant, and cooperative. Patient is in no acute distress and has improved hygiene and grooming Behavior: Patient is calmly seated without any agitated behavior. Speech: Patient's speech is fluent and nonpressured. Mood/Affect: Patient reports their mood is "okay", affect is congruent and euthymic. Suicidality/Homicidality: Patient denies having any homicidal ideation intent or plan. He reports chronic suicidal ideations Perceptions: Patient denies any auditory or visual hallucinations. Though content/process: There is no evidence of any delusional thought content and thought process is linear and goal-directed. Memory and concentration: AOX3, grossly intact for the purposes of this session. Can spell "WORLD" backwards correctly. Judgment and insight: Poor Impression: Major depressive disorder, recurrent, moderate Social anxiety disorder Cluster B personality disorder Cannabis use disorder Plan: -Continue with discharge today as patient has improved and stabilized psychiatrically and is not currently an imminent threat to themself and/or others. -Continue medications: Zoloft 100 mg daily, Remeron 7.5 mg at bedtime, Seroquel 400 mg at bedtime, trazodone 150 mg at bedtime, melatonin 10 mg at bedtime -Patient was counseled on the need for medication compliance and appropriate follow-up at mental health and also primary care for medical issues. Patient verbalized understanding and agreed. -Social work to help coordinate patients discharge today. also to ensure safe home environment that guns/weapons are either removed from the home or locked away. Social work also to arrange for patients follow up appointments with [facility] for psychiatric care along with follow up with primary care provider. -Patient counseled on abstaining from recreational drugs and marijuana and al cohol. Was informed/educated on the adverse effects on their physical and mental health. Patient verbally agreed and understood. -Patient was instructed to return to the hospital or seek immediate medical care if their psychiatric or medical symptoms do worsen or reoccur. Abnormal Labs 05/23/25 05/24/25 05/24/25 20:24 09:53 09:53 MCH 32.6 H HDL Cholesterol 67.70 H U Marijuana (THC) Screen Detected H Allergies Allergy/AdvReac Type Severity Reaction Status Date / Time banana Allergy Anaphylaxis Verified 05/23/25 22:29 Penicillins Allergy Anaphylaxis Verified 05/23/25 19:49 Vital Signs Temp 97.3 F L 06/01/25 09:00 Pulse 100 06/01/25 09:00 Resp 18 06/01/25 09:00 BP 108/78 06/01/25 09:00 Pulse Ox 98 06/01/25 09:00 FiO2 Intake & Output 05/31/25 06/01/25 06/01/25 18:59 06:59 18:59 Weight 134.218 kg Patient Condition at Discharge: Stable Plan - Discharge Summary Discharge Rx Participant: No New Discharge Prescriptions: New Melatonin 10 mg PO HS 30 Days #60 tab Mirtazapine [Remeron] 7.5 mg PO HS 30 Days #15 tab QUEtiapine [SEROquel] 400 mg PO HS 30 Days #30 tab traZODone HCL [Desyrel] 150 mg PO HS 30 Days #90 tab Sertraline [Zoloft] 100 mg PO DAILY 30 Days #30 tab Continue Pyridostigmine [Mestinon] 60 mg PO BID Discontinued LORazepam [Ativan] 1 mg PO BID PRN PRN Reason: MRI Discharge Medication List Pyridostigmine [Mestinon] 60 mg PO BID 05/23/25 [History] Melatonin 10 mg PO HS 30 Days #60 tab 06/01/25 [Rx] Mirtazapine [Remeron] 7.5 mg PO HS 30 Days #15 tab 06/01/25 [Rx] QUEtiapine [SEROquel] 400 mg PO HS 30 Days #30 tab 06/01/25 [Rx] Sertraline [Zoloft] 100 mg PO DAILY 30 Days #30 tab 06/01/25 [Rx] traZODone HCL [Desyrel] 150 mg PO HS 30 Days #90 tab 06/01/25 [Rx] Follow up Appointment(s)/Referral(s): Carter Rodrigez MD [Primary Care Provider] - 1-2 days [facility] [NON-STAFF] - 06/05/25 1:00 pm (June 05 at 1:00 with Sheila) Patient Instructions/Handouts: Depression (DC), Social Anxiety Disorder (ED) Activity/Diet/Wound Care/Special Instructions: Avoid the use of street drugs and alcohol. Take all medications as prescribed. When you are in need of refills on your medications, please contact your medical provider and/or outpatient psychiatrist/provider to have this done. Please go to your scheduled outpatient appointment for aftercare treatment. If symptoms return or become worse, call the crisis line at and/or go to the nearest emergency room for evaluation. National Suicide Hotline [facility] [facility] confidentiality statement: "The information contained in this communication, including attachments, is confidential, may be privileged, and is intended only for the use of the named recipient(s). Unauthorized use, disclosure, forwarding or copying is strictly prohibited and may be unlawful. If you have received this communication in error, please notify me IMMEDIATELY at the phone number or pager listed above. Discharge Disposition: HOME SELF-CARE
== END 2025-06-01 12:11 | disposition home or self-care (01) | DRG 885 ==
LOC: EC 18:56 → 3MHU 22:12
PROVIDERS: ADMIT Psychiatry & Neurology Psychiatry; ATTEND Psychiatry & Neurology Psychiatry
DX: F33.2 Major depressive disorder, recurrent severe without psychotic features (principal); F22 Delusional disorders; I10 Essential (primary) hypertension; R45.851 Suicidal ideations; Z59.00 Homelessness unspecified; F60.89 Other specific personality disorders; G70.00 Myasthenia gravis without (acute) exacerbation; F12.90 Cannabis use, unspecified, uncomplicated; F40.10 Social phobia, unspecified; G47.00 Insomnia, unspecified; K59.00 Constipation, unspecified; Z56.0 Unemployment, unspecified; Z79.899 Other long term (current) drug therapy; Z87.891 Personal history of nicotine dependence; Z91.51 Personal history of suicidal behavior; Z11.52 Encounter for screening for COVID-19
CPT/HCPCS: 80053; 80061; 80306; 81003; 82075; 83036; 84443; 85025; 87636